=== PATIENT | female | born 1955 | race Caucasian/White ===

== ENCOUNTER → 2023-10-23 09:15 | Outpatient (CLI) | payer MEDICARE, OTHER, SELFPAY ==
[2023-10-23 10:56] LABS: Influenza A - CEPHEID Flu A NEGATIVE (NEGATIVE); Influenza B - CEPHEID Flu B NEGATIVE (NEGATIVE); Respiratory Syncytial Virus Negative (Negative)
[2023-10-23 11:02] LABS: COVID-19 CEPHEID 4-PLEX PCR Negative (Negative)
== END ==
PROVIDERS: Visit Provider Student in an Organized Health Care Education/Training Program
DX: R05.1 Acute cough (principal)
CPT/HCPCS: 0241U

== ENCOUNTER → 2023-10-23 09:32 | Outpatient (CLI) | payer MEDICARE, OTHER, SELFPAY ==
--- NOTE | 2023-10-23 09:35 | DI.RAD.S_ITS ---
PROCEDURE: XR CHEST 2V INDICATIONS: deep cough, sick 10 days ago; re-worsen TECHNIQUE: 2 views of the chest were acquired. COMPARISON: None. FINDINGS: Surgical changes and devices: None. Lungs and pleura: Lungs are clear. No pleural effusions or pneumothorax. Mediastinum: Mediastinal contours are normal. Heart size is normal. Bones and chest wall: No suspicious bony abnormalities. Soft tissues appear unremarkable. IMPRESSION: No acute cardiopulmonary abnormality is seen. Dictated by: Louis Mtz M.D. on 10/23/2023 at 10:02 Approved by: Louis Mtz M.D. on 10/23/2023 at 10:03
== END ==
LOC: RAD 09:34
PROVIDERS: Referring Provider Student in an Organized Health Care Education/Training Program; Visit Provider Student in an Organized Health Care Education/Training Program
DX: R05.1 Acute cough (principal)
CPT/HCPCS: 0241U; 71046